=== PATIENT | female | born 1970 | race Caucasian/White ===

== ENCOUNTER 2021-04-26 06:59 | Day surgery (SDC) | payer BC, MEDICARE ==
[2021-04-20 11:14] LABS: BASOPHILS # (AUTO) 0.1 X10'3 (0-0.2); BASOPHILS % (AUTO) 0.6 % (0-1); EOSINOPHILS # (AUTO) 0.3 X10'3 (0-0.9); EOSINOPHILS % (AUTO) 2.8 % (0-6); LYMPHOCYTES # (AUTO) 3.2 X10'3 (1.1-4.8); LYMPHOCYTES % (AUTO) 35.4 % (21-51); MEAN CORPUSCULAR HEMOGLOBIN 30.6 PG (27.0-31.0); MEAN CORPUSCULAR VOLUME 90.1 FL (78-98); MONOCYTES # (AUTO) 0.6 X10'3 (0-0.9); NEUTROPHILS # (AUTO) 4.9 X10'3 (1.8-7.7); NEUTROPHILS % (AUTO) 54.2 % (42-75); PRE OP HEMATOCRIT 44.7 % (35.0-45.0); PRE OP HEMOGLOBIN 15.2 g/dL (12.0-16.0); PRE OP PLATELET COUNT 326 X10'3 (140-440); RED BLOOD COUNT 4.96 X10'6 (4.20-5.60); RED CELL DISTRIBUTION WIDTH 12.4 % (11.5-14.5)
[2021-04-20 11:42] LABS: ALBUMIN 4.1 G/DL (3.4-5.0); ALBUMIN/GLOBULIN RATIO 1.2 (1.1-1.5); ALKALINE PHOSPHATASE 135 IU/L (46-116); BLOOD UREA NITROGEN 10 MG/DL (7-18); BUN/CREATININE RATIO 10.6 (6.6-38.0); CALCIUM 9.3 MG/DL (8.5-10.1); CHLORIDE 105 MMOL/L (99-107); CREATININE 0.94 MG/DL (0.40-0.90); PRE OP ALT 42 U/L (30-65); PRE OP ANION GAP 11 (8-16); PRE OP AST 30 U/L (10-37); PRE OP BILIRUB, TOTAL 0.4 MG/DL (0.0-1.0); PRE OP GLUCOSE 122 MG/DL (70-104); PRE OP POTASSIUM 4.1 MMOL/L (3.4-5.1); PRE OP SODIUM 141 MMOL/L (135-145); TOTAL CARBON DIOXIDE 25.2 MMOL/L (24-32); TOTAL PROTEIN 7.6 G/DL (6.4-8.2); eGFR 63 ML/MIN
[2021-04-26] VITALS (21 sets, daily range): BP systolic 86–117; BP diastolic 49–79
[~2021-04-26] VITALS: Ht 165.1 cm; Wt 93.8 kg
[~2021-04-26 06:59] MED LIST: ARIP5TAB60 PO; ATOR10TA70 PO; HYDROmorphone 1 mg/ml syringe IV PRN; HYDROmorphone inj. 0.5 MG/0.5 ML DISP.SYRIN IV PRN; TEMA30CA PO; VENL150C58 PO; [UNRECOGNIZED DRUG - OTHER] PO; acetaminophen 325mg tablet PO ONE; acetaminophen 325mg tablet PO PRN; bisacodyl 10mg suppository rectal RC PRN; cefazolin/dext.iso 2gm/50ml IV ONE; celeCOXIB 100mg capsule PO ONE; diphenhydrAMINE 25mg capsule PO PRN; famotidine 20mg tablet PO ONE; gabapentin 300mg capsule PO ONE; magnesium hydroxide 30ml (MOM) UD suspension PO PRN; metoclopramide 5 mg/ml inj IV ONE; ondansetron/PF 4mg/2ml inj IV PRN; oxyCODONE SR 10mg (sust. release) tab -2 tabs (20mg) PO ONE; oxyCODONE/APAP 10/325mg tablet PO PRN; ringers solution, lacted 1,000 ML IV SCH; tranexamic acid inj. 1,000 MG in 0.7% saline 100 ML PMX IV ONE; vancomycin 1,500 MG in NS 300ml IV soln IV ONE
[2021-04-26] MEDS ORDERED: ketorolac trometh. 30mg/ml inj. ONE (07:17)
[2021-04-26] MEDS ORDERED: epiNEPHrine 1 mg/ml inj ONE (07:17)
[2021-04-26] MEDS ORDERED: ROPIVAcaine 0.5% (5mg/ml) 30ml vial ONE ×2 (07:18→11:55)
[2021-04-26] MEDS ORDERED: cloNIDine hcl/PF 100mcg/ml inj ONE (07:18)
[2021-04-26] MEDS ORDERED: vancomycin 1,000mg inj ONE (07:18)
[2021-04-26] MEDS ORDERED: temazepam 15mg capsule PO PRN (07:25)
[2021-04-26] MEDS ORDERED: ROPIVAcaine 0.2% (10 MG/5 ML) BOLUS INJECTION ADDCANAL PRN (08:00)
[2021-04-26] MEDS ORDERED: morphine 2 MG/ML inj. syringe IV PRN ×2 (08:00)
[2021-04-26] MEDS ORDERED: hydrALAZINE 20mg/ml inj. IV PRN (08:00)
[2021-04-26] MEDS: gabapentin 300mg capsule PO SCH ×3 (08:00→20:15)
[2021-04-26] MEDS ORDERED: ondansetron/PF 4mg/2ml inj IV PRN (08:00)
[2021-04-26] MEDS ORDERED: morphine 4 MG/ML inj SYRINge IV PRN ×2 (08:00)
[2021-04-26] MEDS ORDERED: ringers solution, lacted 1,000 ML IV SCH (08:00)
[2021-04-26] MEDS ORDERED: labetalol 20mg/4ml (5mg/ml) syringe IV PRN (08:00)
[2021-04-26] MEDS: multivitamins, therapeutics tablet PO SCH (08:00)
[2021-04-26] MEDS ORDERED: FENTANYL CITRATE/PF 50 MCG/1 ML VIAL ONE (10:51)
[2021-04-26] MEDS ORDERED: MIDAZolam 1mg/ml 10ml vial ONE (10:51)
--- NOTE | 2021-04-26 12:50 | NUR ---
Received from OR via BED , accompanied by Anesthesiologist DR. CAMPOS and report given by Anesthesiolgist. PATIENT IS ON MASK AT 10 LITERS. TACHYCARDIC, DR BEJARANO. 18 GAUGE LEFT HAND. WRAP WOTH POWDER PACK. DRESSING WITH WITH EXTENTION FOR ON Q PUMP. XRAY CALLED. Addendum: 04/26/21 at 1323 by Gabby Wilburn RN Amended: Links added.
[2021-04-26] MEDS: ROPIVAcaine 0.2%/PF PUMP/bolus 545 ML ADDCANAL SCH (13:39)
[2021-04-26] MEDS ORDERED: tranexamic acid 1gm/0.7% sal. 100 ML IV ONE (14:00)
--- NOTE | 2021-04-26 14:06 | NUR ---
Received report from MARK Pierre. Awaiting patient arrival to room 347B.
--- NOTE | 2021-04-26 14:10 | NUR ---
PATIENT M DISCHARGE CRITERIA. BOLUSED PATIENT 200. BP 99/58. SR. 99% ON 3 LITERS. PATIENT STATES NO PAIN. SENT BAG WITH PATIENT TO ROOM. PATIENT HAS MET ALL CRITERIA FOR TRANSFER TO THE SURGICAL/[facility]/PCU/ORTHO/ICU FLOOR. VSS. DRESSINGS INTACT. BED LOW, CALL LIGHT PRESENT AND 2 RAILS UP. RN PRESENT TO ACCEPT CARE OF PATIENT AND REPORT HAS BEEN CALLED. ALL QUESTIONS ANSWERED TO ACCEPTING MARK YU AT BEDSIDE TO ASSIST AND ASSESS. Addendum: 04/26/21 at 1457 by Gabby Wilburn RN Amended: Links added.
--- NOTE | 2021-04-26 14:31 | NUR ---
Received patient to room 347B. Patient is alert and oriented in no apparent acute distress, denies pain or discomfort at this time. Patient has ONQ @2ml/hr with numbess and tingling to BLE. Good pedal pulse and cap refill. Left knee with sonia dressing cdi, knee wrap with cool powder pack. Oriented patien to room and call light. Belongings bag on bedside dresser. Call light within reach.
[2021-04-26] MEDS: potassium cl 20mEq in 1/2 NS 1,000 ML IV SCH ×3 (14:35→23:10)
[2021-04-26] MEDS ORDERED: cefazolin/dext.iso 2gm/100ml 100 ML IV SCH (16:00)
[2021-04-26] MEDS: ceFAZolin 2gm in dextrose, iso 50 ML IV SCH (16:14)
[2021-04-26] MEDS: oxyCODONE/APAP 10/325mg tablet PO PRN (17:42)
--- NOTE | 2021-04-26 17:43 | NUR ---
ONQ ball turned to 4ml/hr.
--- NOTE | 2021-04-26 18:09 | NUR ---
Problems reprioritized. Patient report given, questions answered & plan of care reviewed with MARK Moore.
--- NOTE | 2021-04-26 18:44 | NUR ---
Patient in room [facility] 347. I have received report from day nurse and had the opportunity to ask questions and assume patient care.
--- NOTE | 2021-04-26 19:15 | NUR ---
PT LYING IN BED CALM, VOICED NO PAIN AT THIS TIME. LEFT KNEE WRAP, COLD PACK IN PLACE. PT ABLE TO MOVE EXTREMITIES. PEDAL PULSE PALPABLE STRONG, GOOD CAPILLARY REFILL. ONQ IN PLACE AT 4 ML/HR. IV FLUID INFUSING. PT VOIDED LARGE AMOUNT YELLOW CLEAR URINE. CALL CARDOZO WITHIN REACH.
[2021-04-26] MEDS: ascorbic acid 500mg tablet PO SCH (20:15)
[2021-04-26] MEDS ORDERED: sennosides 8.6mg tablet PO SCH (21:00)
[2021-04-26] MEDS ORDERED: aripiprazole 5mg tablet PO SCH (21:00)
[2021-04-27] VITALS: BP 122/95
[2021-04-27] MEDS: ceFAZolin 2gm in dextrose, iso 50 ML IV SCH (00:56)
[2021-04-27 04:00] VITALS: BP 98/50
[2021-04-27 05:57] LABS: BASOPHILS # (AUTO) 0.1 X10'3 (0-0.2); BASOPHILS % (AUTO) 0.6 % (0-1); EOSINOPHILS # (AUTO) 0.2 X10'3 (0-0.9); EOSINOPHILS % (AUTO) 1.8 % (0-6); HEMATOCRIT 38.2 % (35.0-45.0); HEMOGLOBIN 12.9 g/dl (12.0-16.0); LYMPHOCYTES # (AUTO) 1.9 X10'3 (1.1-4.8); MEAN CORPUSCULAR HEMOGLOBIN 30.8 PG (27.0-31.0); MEAN CORPUSCULAR HGB CONC 33.8 g/dL (33.0-36.5); MEAN CORPUSCULAR VOLUME 91.2 FL (78-98); MEAN PLATELET VOLUME 8.8 FL (7.4-10.4); MONOCYTES # (AUTO) 0.7 X10'3 (0-0.9); MONOCYTES % (AUTO) 8.1 % (2-12); NEUTROPHILS # (AUTO) 5.8 X10'3 (1.8-7.7); NEUTROPHILS % (AUTO) 67.5 % (42-75); PLATELET COUNT 240 X10'3 (140-440); RED BLOOD COUNT 4.18 X10'6 (4.20-5.60); RED CELL DISTRIBUTION WIDTH 12.8 % (11.5-14.5); WHITE BLOOD COUNT 8.6 X10'3 (4.5-11.0)
[2021-04-27 06:07] LABS: ANION GAP 3 (8-16); CHLORIDE 107 MMOL/L (99-107); POTASSIUM 4.5 MMOL/L (3.5-5.1); SODIUM 139 MMOL/L (135-145); TOTAL CARBON DIOXIDE 29.4 MMOL/L (24-32)
[2021-04-27] MEDS: potassium cl 20mEq in 1/2 NS 1,000 ML IV SCH ×2 (06:35→08:15)
--- NOTE | 2021-04-27 06:38 | NUR ---
Problems reprioritized. Patient report given to Mary FLORES, questions answered & plan of care reviewed with .
--- NOTE | 2021-04-27 06:44 | NUR ---
Patient in room [facility] 347. I have received report from MARK Moore and had the opportunity to ask questions and assume patient care.
[2021-04-27 07:52] VITALS: BP 97/70
[2021-04-27] MEDS ORDERED: venlafaxine XR 75mg capsule (Q24H) PO SCH (08:00)
[2021-04-27] MEDS ORDERED: atorvastatin 20mg tablet PO SCH (08:00)
[2021-04-27] MEDS: ascorbic acid 500mg tablet PO SCH (08:10)
[2021-04-27] MEDS: gabapentin 300mg capsule PO SCH ×2 (08:10→13:00)
[2021-04-27] MEDS: multivitamins, therapeutics tablet PO SCH (08:10)
[2021-04-27] MEDS ORDERED: aspirin 325mg tablet PO SCH (08:30)
--- NOTE | 2021-04-27 09:31 | NUR ---
Joint Surgery Consult: Pt s/p L knee surgery this admit. Pt seen by CHRIS for written/verbal high protein ed w/ RD contact information provided. CHRIS encouraged pt to contact dietitian's office if further questions/concerns. Addendum: 04/27/21 at [address] Amended: Links added.
[2021-04-27 12:02] VITALS: BP 113/66
[2021-04-27] MEDS: oxyCODONE/APAP 10/325mg tablet PO PRN (12:13)
[2021-04-27] MEDS: ROPIVAcaine 0.2%/PF PUMP/bolus 545 ML ADDCANAL SCH (14:55)
--- NOTE | 2021-04-27 15:15 | NUR ---
Pt axo4, slightly forgetful. VS stable. Discharge instructions given with family- daughter and patient at bedside. Discharge packet given. Pt is to be discharged with ONQ and Reuben dressing, instructions and care with return demo. IV discontinued, intact and no s/sx of complications. Pt gone home with all pt belongings and escorted out via wheel chair.
[2021-04-27] MEDS ORDERED: celeCOXIB 100mg capsule PO SCH (20:00)
== END 2021-04-27 14:30 | disposition home or self-care (01) ==
LOC: SUR 3N 06:59 → PAS 06:59 → SUR 3N 13:47 → PAS 04-27 14:30
PROVIDERS: ATTEND Orthopaedic Surgery
DX: M17.12 Unilateral primary osteoarthritis, left knee (principal); G89.18 Other acute postprocedural pain; E03.9 Hypothyroidism, unspecified; F41.9 Anxiety disorder, unspecified; F32.A Depression, unspecified; E66.9 Obesity, unspecified; Z68.35 Body mass index [BMI] 35.0-35.9, adult; Z79.899 Other long term (current) drug therapy; Z79.82 Long term (current) use of aspirin; Z88.5 Allergy status to narcotic agent; Z88.8 Allergy status to other drugs, medicaments and biological substances; Z98.890 Other specified postprocedural states; Z90.49 Acquired absence of other specified parts of digestive tract
CPT/HCPCS: 27447; 36415; 64448; 71046; 73560; 76942; 80051; 80053; 82948; 85025; 86885; 86900; 86901; 87081; 97110; 97116; 97161; 97535; C1713; C1776; J0171; J0690; J0735; J1170; J1885; J2250; J2405; J2765; J2795; J3010; J3370; J3480; J3490; J7030; J7040; J7120; Z7506; Z7508; Z7512; A4215; A7000; G0378